=== PATIENT | male | born 1985 | race Two or more races ===

== ENCOUNTER 2021-07-15 21:34 | Inpatient (IN) | payer OTHER ==
[~2021-07-15] VITALS: Ht 175.3 cm; Wt 71.8 kg
[2021-07-15] MEDS ORDERED: KETAMINE HCL 50 MG/ML 10 ML VIAL ONE (21:54)
[2021-07-15] MEDS ORDERED: AMIODARONE HCL 360 MG in DEXTROSE 5%-WATER 242.8 ML IV ONE (22:00)
[2021-07-15] MEDS ORDERED: AMIODARONE HCL 150 MG in DEXTROSE 5%-WATER 97 ML IV ONE (22:00)
[2021-07-15] MEDS ORDERED: KETAMINE HCL 50 MG/ML 10 ML VIAL IVP ONE (22:00)
[2021-07-15 22:13] LABS: BASOPHILS % (AUTO) 0.8 % (0.0-2.0); EOSINOPHILS % (AUTO) 2.5 % (1.0-6.0); HEMATOCRIT 44.3 % (41-53); HEMOGLOBIN 14.8 g/dL (13.5-17.5); LYMPHOCYTES # (AUTO) 3.4 K/uL (1.0-4.8); LYMPHOCYTES % (AUTO) 24.9 % (22.0-44.0); MEAN CORPUSCULAR HGB CONC 33.4 G/dL (31.0-37.0); MEAN CORPUSCULAR VOLUME 90 fL (80-100); MONOCYTES # (AUTO) 0.9 K/uL (0.1-1.0); MONOCYTES % (AUTO) 6.9 % (2.0-9.0); NEUTROPHILS # (AUTO) 8.8 K/uL (1.8-7.7); NEUTROPHILS % (AUTO) 64.9 % (40.0-70.0); PLATELET COUNT (AUTO) 336 K/uL (150-450); RED BLOOD CELL COUNT(AUTO) 4.94 MIL/uL (4.50-5.90); RED CELL DISTRIBUTION WIDTH 13.6 % (11.5-14.5)
[2021-07-15 22:15] LABS: COVID AG,FIA SOURCE NASOPHARYNGEAL
[2021-07-15 22:22] LABS: ANION GAP 7 mmol/L (8-16); CALCIUM, TOTAL 9.3 mg/dL (8.8-10.5); CARBON DIOXIDE 29 mmol/L (22-29); CHLORIDE 108 mmol/L (98-107); CREATININE 1.33 mg/dL (0.60-1.30); GLUCOSE,RANDOM 101 mg/dL (70-110); POTASSIUM 4.1 mmol/L (3.5-5.1); SODIUM SERUM 144 mmol/L (136-145); UREA NITROGEN, BLOOD 23 mg/dL (7-18)
[2021-07-15 22:25] LABS: GLOMERULAR FILTR. RATE CALC > 60 mL/min (>60)
[2021-07-15 22:28] LABS: ALANINE AMINOTRANSFERASE 40 U/L (12-78); ALBUMIN 3.2 g/dL (3.4-5.0); ALKALINE PHOSPHATASE 88 U/L (46-116); ASPARTATE AMINOTRANSFERASE 35 U/L (15-37); BILIRUBIN,TOTAL 0.3 mg/dL (0.1-1.0); TOTAL PROTEIN, SERUM 6.9 g/dL (6.4-8.2)
[2021-07-15] MEDS ORDERED: ACETAMINOPHEN 325 MG TABLET PO PRN (22:30)
[2021-07-15] MEDS ORDERED: LORazepam 2 MG/ML VIAL IVP PRN (22:30)
[2021-07-15] MEDS ORDERED: MAGNESIUM OXIDE 400 MG TABLET PO PRN (22:30)
[2021-07-15] MEDS ORDERED: MORPHINE SULFATE 2 MG/ML SYRINGE IVP PRN (22:30)
[2021-07-15] MEDS ORDERED: SODIUM CHLORIDE 0.9% 1,000 ML IV ONE (22:30)
[2021-07-15] MEDS ORDERED: ONDANSETRON HCL 4 MG/2 ML VIAL IVP PRN (22:30)
[2021-07-15] MEDS ORDERED: MAGNESIUM SULFATE 4 GM/WATER 100 ML IV PRN (22:30)
[2021-07-15] MEDS ORDERED: MAGNESIUM SULFATE 2 GM/WATER 50 ML IV PRN (22:30)
[2021-07-15] MEDS ORDERED: OxyCODONE HCL/ACETAMINOPHEN 5-325 MG TABLET PO PRN (22:30)
[2021-07-16] VITALS: BP 123/62
[2021-07-16 04:00] VITALS: BP 107/54
[2021-07-16] MEDS ORDERED: AMIODARONE HCL 540 MG in DEXTROSE 5%-WATER 239.2 ML IV ONE (04:00)
[2021-07-16 08:00] VITALS: BP 113/76
[2021-07-16] MEDS: FAMOTIDINE 20 MG TABLET PO SCH ×2 (08:43→22:27)
[2021-07-16] MEDS: DOCUSATE SODIUM 100 MG CAPSULE PO SCH ×2 (08:43→22:28)
[2021-07-16 12:15] VITALS: BP 129/79
[2021-07-16 15:29] VITALS: BP 121/71
[2021-07-16 21:37] VITALS: BP 124/76
[2021-07-16] MEDS ORDERED: AMIODARONE HCL 750 MG in DEXTROSE 5%-WATER 485 ML IV SCH (22:00)
[2021-07-16] MEDS: METOPROLOL TARTRATE 25 MG TABLET PO SCH (22:27)
[2021-07-17 01:54] VITALS: BP 120/76
[2021-07-17 07:15] VITALS: BP 127/72
[2021-07-17 08:07] VITALS: BP 134/98
[2021-07-17] MEDS: DOCUSATE SODIUM 100 MG CAPSULE PO SCH (08:18)
[2021-07-17] MEDS: METOPROLOL TARTRATE 25 MG TABLET PO SCH (08:18)
[2021-07-17] MEDS: FAMOTIDINE 20 MG TABLET PO SCH (08:19)
[2021-07-17 09:00] LABS: ANION GAP 7 mmol/L (8-16); CALCIUM, TOTAL 8.9 mg/dL (8.8-10.5); CARBON DIOXIDE 28 mmol/L (22-29); CHLORIDE 104 mmol/L (98-107); CREATININE 0.99 mg/dL (0.60-1.30); GLOMERULAR FILTR. RATE CALC > 60 mL/min (>60); GLUCOSE,RANDOM 95 mg/dL (70-110); POTASSIUM 4.4 mmol/L (3.5-5.1); SODIUM SERUM 139 mmol/L (136-145); UREA NITROGEN, BLOOD 14 mg/dL (7-18)
[2021-07-17 10:56] VITALS: BP 131/92
[2021-07-17] MEDS ORDERED: LOSA-381 PO (14:50)
[2021-07-17] MEDS ORDERED: METO25XL PO (14:50)
[2021-07-17 14:57] VITALS: BP 134/75
[2021-07-18] MEDS ORDERED: METOPROLOL SUCCINATE 25 MG ER TABLET PO SCH (09:00)
[2021-07-18] MEDS ORDERED: LOSARTAN POTASSIUM 25 MG TABLET PO SCH (09:00)
== END 2021-07-17 17:00 | disposition home or self-care (01) | DRG 201 ==
LOC: EMS 21:37 → ICUN 22:23 → 5N 07-16 11:10
PROVIDERS: ADMIT Internal Medicine; ATTEND Internal Medicine
PROC: 5A2204Z Restoration of Cardiac Rhythm, Single (ICD-10-PCS; principal; 2021-07-15)
DX: I47.2 Ventricular tachycardia (principal); I42.8 Other cardiomyopathies; I50.22 Chronic systolic (congestive) heart failure; F10.10 Alcohol abuse, uncomplicated; Z20.822 Contact with and (suspected) exposure to COVID-19; F15.10 Other stimulant abuse, uncomplicated; Z86.16 Personal history of COVID-19; Z91.14 Patient's other noncompliance with medication regimen
CPT/HCPCS: 71045; 80048; 80053; 83735; 83880; 84484; 85025; 87081; 93005; 93306; 99291; G0378; J0282; J3490; J7060; 36415-L1; 36415-TC; U0003

== ENCOUNTER 2021-08-16 08:51 | Inpatient (IN) | payer OTHER ==
[~2021-08-16] VITALS: Ht 177.8 cm; Wt 83.0 kg
[~2021-08-16 08:51] MED LIST: LOSA-381 PO; METO25XL PO
[2021-08-16] MEDS ORDERED: KETAMINE HCL 50 MG/ML 10 ML VIAL ONE (08:55)
[2021-08-16] MEDS ORDERED: KETAMINE HCL 50 MG/ML 10 ML VIAL IVP ONE (09:00)
[2021-08-16] MEDS ORDERED: AMIODARONE HCL 150 MG in DEXTROSE 5%-WATER 97 ML IV ONE (09:15)
[2021-08-16] MEDS ORDERED: AMIODARONE HCL 360 MG in DEXTROSE 5%-WATER 242.8 ML IV ONE (09:15)
[2021-08-16 10:22] LABS: BASOPHILS % (AUTO) 0.3 % (0.0-2.0); EOSINOPHILS % (AUTO) 1.5 % (1.0-6.0); HEMATOCRIT 46.4 % (41-53); HEMOGLOBIN 15.3 g/dL (13.5-17.5); LYMPHOCYTES # (AUTO) 2.6 K/uL (1.0-4.8); LYMPHOCYTES % (AUTO) 12.2 % (22.0-44.0); MEAN CORPUSCULAR HEMOGLOBIN 29.9 pg (26.0-34.0); MEAN CORPUSCULAR HGB CONC 33.1 G/dL (31.0-37.0); MEAN CORPUSCULAR VOLUME 91 fL (80-100); MONOCYTES # (AUTO) 1.5 K/uL (0.1-1.0); MONOCYTES % (AUTO) 6.8 % (2.0-9.0); NEUTROPHILS % (AUTO) 79.2 % (40.0-70.0); PLATELET COUNT (AUTO) 304 K/uL (150-450); RED BLOOD CELL COUNT(AUTO) 5.13 MIL/uL (4.50-5.90); RED CELL DISTRIBUTION WIDTH 14.4 % (11.5-14.5)
[2021-08-16] MEDS: METOPROLOL SUCCINATE 25 MG ER TABLET PO SCH (10:24)
[2021-08-16] MEDS: LOSARTAN POTASSIUM 25 MG TABLET PO SCH (10:24)
[2021-08-16 10:25] LABS: ANION GAP 8 mmol/L (8-16); CALCIUM, TOTAL 8.3 mg/dL (8.8-10.5); CARBON DIOXIDE 26 mmol/L (22-29); CHLORIDE 105 mmol/L (98-107); CREATININE 1.02 mg/dL (0.60-1.30); GLOMERULAR FILTR. RATE CALC > 60 mL/min (>60); GLUCOSE,RANDOM 135 mg/dL (70-110); POTASSIUM 4.1 mmol/L (3.5-5.1); SODIUM SERUM 139 mmol/L (136-145); UREA NITROGEN, BLOOD 19 mg/dL (7-18)
[2021-08-16 10:45] LABS: COVID AG,FIA SOURCE NASOPHARYNGEAL
[2021-08-16] MEDS ORDERED: ACETAMINOPHEN 325 MG TABLET PO PRN ×2 (10:45→11:15)
[2021-08-16] MEDS ORDERED: MAGNESIUM SULFATE 2 GM/WATER 50 ML IV ONE (10:45)
[2021-08-16] MEDS ORDERED: ONDANSETRON HCL 4 MG/2 ML VIAL IVP PRN ×2 (10:45→11:15)
[2021-08-16] MEDS ORDERED: BISACODYL 10 MG RECTAL RECTAL SUPPOSITORY PR PRN (11:15)
[2021-08-16] MEDS ORDERED: 0.9% SODIUM CHLORIDE 10 ML SYRINGE IVP PRN (11:15)
[2021-08-16] MEDS ORDERED: DOCUSATE SODIUM 100 MG CAPSULE PO PRN (11:15)
[2021-08-16] MEDS ORDERED: MAGNESIUM HYDROXIDE SUSPENSION 30 ML UDCUP PO PRN (11:15)
[2021-08-16 11:58] VITALS: BP 104/74
[2021-08-16 15:01] VITALS: BP 121/67
[2021-08-16] MEDS ORDERED: AMIODARONE HCL 540 MG in DEXTROSE 5%-WATER 239.2 ML IV ONE (15:15)
[2021-08-16] MEDS: CefTRIAXone 1 GM/DEXTROSE 50 ML IV SCH (17:01)
[2021-08-16] MEDS ORDERED: FUROSEMIDE 20 MG/2 ML VIAL IVP ONE (17:15)
[2021-08-16] MEDS: HEPARIN SODIUM,PORCINE 5,000 UNITS/ML VIAL SQ SCH ×2 (17:15→23:06)
[2021-08-16] MEDS: DOXYCYCLINE HYCLATE 100 MG in DEXTROSE 5%-WATER 100 ML IV SCH (17:30)
[2021-08-16 19:40] VITALS: BP 135/82
[2021-08-16 20:19] LABS: APPEARANCE,URINE CLEAR (CLEAR); BILIRUBIN,URINE NEGATIVE (NEGATIVE); GLUCOSE, URINE (UA) NEGATIVE (NEGATIVE); KETONES,URINE NEGATIVE (NEGATIVE); LEUKOCYTE ESTERASE ,URINE NEGATIVE (NEGATIVE); NITRATE,URINE NEGATIVE (NEGATIVE); OCCULT BLOOD,URINE NEGATIVE (NEGATIVE); PH,URINE 5.5 (5.0-8.0); PROTEIN,URINE NEGATIVE (NEGATIVE); SPECIFIC GRAVITIY, URINE 1.019 (1.003-1.030); UROBILINOGEN,URINE <=1.0 mg/dL (<=1.0)
[2021-08-16 20:25] LABS: AMPHET/METH SCREEN,URINE POSITIVE (NEGATIVE); BARBITURATE SCREEN, URINE NEGATIVE (NEGATIVE); BENZODIAZEPINES SCREEN,URINE NEGATIVE (NEGATIVE); CANNABINOID SCREEN,URINE POSITIVE (NEGATIVE); COCAINE SCREEN,URINE NEGATIVE (NEGATIVE); METHADONE SCREEN, URINE NEGATIVE (NEGATIVE); OPIATE SCREEN,URINE NEGATIVE (NEGATIVE)
[2021-08-16 20:27] LABS: BACTERIA,URINE None Seen /HPF (None Seen); RBC,URINE None Seen /HPF (0-2); WBC,URINE None Seen /HPF (0-5)
[2021-08-16 20:28] LABS: PHENCYCLIDINE SCREEN,URINE NEGATIVE (NEGATIVE)
[2021-08-16] MEDS: MELATONIN 3 MG TABLET PO PRN (20:37)
[2021-08-16 23:30] VITALS: BP 125/71
[2021-08-17] MEDS ORDERED: SODIUM CHLORIDE 0.9% 250 ML IV ONE (02:25)
[2021-08-17] MEDS: DOXYCYCLINE HYCLATE 100 MG in DEXTROSE 5%-WATER 100 ML IV SCH ×2 (02:36→16:05)
[2021-08-17 04:16] VITALS: BP 128/73
[2021-08-17 06:33] LABS: BASOPHILS % (AUTO) 0.4 % (0.0-2.0); EOSINOPHILS % (AUTO) 3.2 % (1.0-6.0); HEMATOCRIT 41.3 % (41-53); LYMPHOCYTES % (AUTO) 17.4 % (22.0-44.0); MEAN CORPUSCULAR HEMOGLOBIN 30.2 pg (26.0-34.0); MEAN CORPUSCULAR HGB CONC 33.9 G/dL (31.0-37.0); MEAN CORPUSCULAR VOLUME 89 fL (80-100); MONOCYTES # (AUTO) 0.5 K/uL (0.1-1.0); MONOCYTES % (AUTO) 4.8 % (2.0-9.0); NEUTROPHILS # (AUTO) 8.4 K/uL (1.8-7.7); NEUTROPHILS % (AUTO) 74.2 % (40.0-70.0); PLATELET COUNT (AUTO) 295 K/uL (150-450); RED BLOOD CELL COUNT(AUTO) 4.63 MIL/uL (4.50-5.90); RED CELL DISTRIBUTION WIDTH 14.3 % (11.5-14.5)
[2021-08-17 07:07] LABS: ALANINE AMINOTRANSFERASE 51 U/L (12-78); ALBUMIN 2.9 g/dL (3.4-5.0); ALKALINE PHOSPHATASE 59 U/L (46-116); ANION GAP 10 mmol/L (8-16); ASPARTATE AMINOTRANSFERASE 30 U/L (15-37); BILIRUBIN,TOTAL 1.2 mg/dL (0.1-1.0); CALCIUM, TOTAL 8.2 mg/dL (8.8-10.5); CARBON DIOXIDE 25 mmol/L (22-29); CHLORIDE 104 mmol/L (98-107); CREATININE 0.93 mg/dL (0.60-1.30); GLOMERULAR FILTR. RATE CALC > 60 mL/min (>60); GLUCOSE,RANDOM 123 mg/dL (70-110); POTASSIUM 3.4 mmol/L (3.5-5.1); SODIUM SERUM 139 mmol/L (136-145); THYROID STIMULATING HORMONE 3.07 uIU/mL (0.36-3.74); TOTAL PROTEIN, SERUM 6.2 g/dL (6.4-8.2); UREA NITROGEN, BLOOD 11 mg/dL (7-18)
[2021-08-17 07:59] VITALS: BP 126/79
[2021-08-17] MEDS: ASPIRIN 81 MG CHEWABLE TABLET PO SCH (09:13)
[2021-08-17] MEDS: HEPARIN SODIUM,PORCINE 5,000 UNITS/ML VIAL SQ SCH ×2 (09:13→16:04)
[2021-08-17] MEDS: PANTOPRAZOLE SODIUM 40 MG DR TABLET PO SCH (09:13)
[2021-08-17] MEDS: LOSARTAN POTASSIUM 25 MG TABLET PO SCH (09:13)
[2021-08-17] MEDS: METOPROLOL SUCCINATE 25 MG ER TABLET PO SCH (09:13)
[2021-08-17] MEDS ORDERED: AMIODARONE HCL 750 MG in DEXTROSE 5%-WATER 485 ML IV SCH (09:15)
[2021-08-17 11:46] VITALS: BP 112/70
[2021-08-17] MEDS: CefTRIAXone 1 GM/DEXTROSE 50 ML IV SCH (16:04)
[2021-08-17] MEDS ORDERED: SODIUM CHLORIDE 0.9% 100 ML ONE (16:09)
[2021-08-17 16:23] VITALS: BP 121/69
[2021-08-17 20:00] VITALS: BP 109/77
[2021-08-18] VITALS (8 sets, daily range): BP systolic 101–132; BP diastolic 66–80
[2021-08-18] MEDS ORDERED: MAGNESIUM OXIDE 400 MG TABLET PO ONE ×2 (01:00→05:00)
[2021-08-18] MEDS ORDERED: POTASSIUM CHLORIDE 20 MEQ ER TABLET PO ONE (01:00)
[2021-08-18] MEDS: HEPARIN SODIUM,PORCINE 5,000 UNITS/ML VIAL SQ SCH ×4 (01:02→23:51)
[2021-08-18] MEDS: MELATONIN 3 MG TABLET PO PRN ×2 (01:21→20:38)
[2021-08-18] MEDS: DOXYCYCLINE HYCLATE 100 MG in DEXTROSE 5%-WATER 100 ML IV SCH ×2 (04:01→15:16)
[2021-08-18 06:26] LABS: BASOPHILS % (AUTO) 0.6 % (0.0-2.0); EOSINOPHILS % (AUTO) 6.8 % (1.0-6.0); HEMOGLOBIN 15.5 g/dL (13.5-17.5); LYMPHOCYTES % (AUTO) 21.5 % (22.0-44.0); MEAN CORPUSCULAR HEMOGLOBIN 30.6 pg (26.0-34.0); MEAN CORPUSCULAR HGB CONC 34.6 G/dL (31.0-37.0); MEAN CORPUSCULAR VOLUME 89 fL (80-100); MONOCYTES # (AUTO) 0.9 K/uL (0.1-1.0); MONOCYTES % (AUTO) 9.7 % (2.0-9.0); NEUTROPHILS # (AUTO) 5.7 K/uL (1.8-7.7); NEUTROPHILS % (AUTO) 61.4 % (40.0-70.0); PLATELET COUNT (AUTO) 293 K/uL (150-450); RED BLOOD CELL COUNT(AUTO) 5.07 MIL/uL (4.50-5.90); RED CELL DISTRIBUTION WIDTH 14.1 % (11.5-14.5)
[2021-08-18 07:02] LABS: ALANINE AMINOTRANSFERASE 53 U/L (12-78); ALKALINE PHOSPHATASE 62 U/L (46-116); ANION GAP 8 mmol/L (8-16); ASPARTATE AMINOTRANSFERASE 27 U/L (15-37); BILIRUBIN,TOTAL 0.9 mg/dL (0.1-1.0); CALCIUM, TOTAL 8.8 mg/dL (8.8-10.5); CARBON DIOXIDE 26 mmol/L (22-29); CHLORIDE 103 mmol/L (98-107); CREATININE 0.84 mg/dL (0.60-1.30); GLOMERULAR FILTR. RATE CALC > 60 mL/min (>60); GLUCOSE,RANDOM 103 mg/dL (70-110); SODIUM SERUM 137 mmol/L (136-145); TOTAL PROTEIN, SERUM 6.8 g/dL (6.4-8.2); UREA NITROGEN, BLOOD 13 mg/dL (7-18)
[2021-08-18] MEDS: LOSARTAN POTASSIUM 25 MG TABLET PO SCH ×2 (09:00→09:30)
[2021-08-18] MEDS: PANTOPRAZOLE SODIUM 40 MG DR TABLET PO SCH (09:30)
[2021-08-18] MEDS: METOPROLOL SUCCINATE 25 MG ER TABLET PO SCH (09:30)
[2021-08-18] MEDS: ASPIRIN 81 MG CHEWABLE TABLET PO SCH (09:30)
[2021-08-18] MEDS: CefTRIAXone 1 GM/DEXTROSE 50 ML IV SCH (16:50)
[2021-08-18] MEDS: AMIODARONE HCL 200 MG TABLET PO SCH (20:32)
[2021-08-19] VITALS: BP 117/66
[2021-08-19] MEDS: DOXYCYCLINE HYCLATE 100 MG in DEXTROSE 5%-WATER 100 ML IV SCH (03:56)
[2021-08-19 05:44] VITALS: BP 128/74
[2021-08-19 07:05] LABS: ALANINE AMINOTRANSFERASE 47 U/L (12-78); ALBUMIN 2.8 g/dL (3.4-5.0); ALKALINE PHOSPHATASE 74 U/L (46-116); ANION GAP 11 mmol/L (8-16); ASPARTATE AMINOTRANSFERASE 23 U/L (15-37); BASOPHILS % (AUTO) 0.5 % (0.0-2.0); BILIRUBIN,TOTAL 0.5 mg/dL (0.1-1.0); CALCIUM, TOTAL 8.4 mg/dL (8.8-10.5); CARBON DIOXIDE 25 mmol/L (22-29); CHLORIDE 103 mmol/L (98-107); CREATININE 0.98 mg/dL (0.60-1.30); EOSINOPHILS % (AUTO) 7.6 % (1.0-6.0); GLOMERULAR FILTR. RATE CALC > 60 mL/min (>60); GLUCOSE,RANDOM 116 mg/dL (70-110); HEMOGLOBIN 15.1 g/dL (13.5-17.5); LYMPHOCYTES # (AUTO) 2.4 K/uL (1.0-4.8); LYMPHOCYTES % (AUTO) 28.8 % (22.0-44.0); MEAN CORPUSCULAR HGB CONC 33.5 G/dL (31.0-37.0); MEAN CORPUSCULAR VOLUME 90 fL (80-100); MONOCYTES % (AUTO) 11.9 % (2.0-9.0); NEUTROPHILS # (AUTO) 4.2 K/uL (1.8-7.7); NEUTROPHILS % (AUTO) 51.2 % (40.0-70.0); PLATELET COUNT (AUTO) 292 K/uL (150-450); POTASSIUM 3.6 mmol/L (3.5-5.1); RED BLOOD CELL COUNT(AUTO) 5.02 MIL/uL (4.50-5.90); RED CELL DISTRIBUTION WIDTH 14.4 % (11.5-14.5); SODIUM SERUM 139 mmol/L (136-145); TOTAL PROTEIN, SERUM 6.5 g/dL (6.4-8.2); UREA NITROGEN, BLOOD 14 mg/dL (7-18)
[2021-08-19] MEDS: PANTOPRAZOLE SODIUM 40 MG DR TABLET PO SCH (08:35)
[2021-08-19] MEDS: METOPROLOL SUCCINATE 25 MG ER TABLET PO SCH (08:35)
[2021-08-19] MEDS: AMIODARONE HCL 200 MG TABLET PO SCH (08:35)
[2021-08-19] MEDS: ASPIRIN 81 MG CHEWABLE TABLET PO SCH (08:35)
[2021-08-19] MEDS: LOSARTAN POTASSIUM 25 MG TABLET PO SCH (08:35)
[2021-08-19] MEDS: HEPARIN SODIUM,PORCINE 5,000 UNITS/ML VIAL SQ SCH (08:36)
[2021-08-19 09:41] VITALS: BP 139/77
[2021-08-19] MEDS ORDERED: LORazepam 2 MG/ML VIAL IVP PRN (10:30)
[2021-08-19] MEDS ORDERED: LURA40TA2 PO (11:43)
[2021-08-19] MEDS ORDERED: ASPI-1450 PO (12:10)
[2021-08-19] MEDS ORDERED: AMIO200T68 PO (12:10)
[2021-08-19] MEDS ORDERED: LOSA-381 PO (12:10)
[2021-08-19] MEDS ORDERED: METO25XL PO (12:11)
== END 2021-08-19 12:30 | disposition home or self-care (01) | DRG 201 ==
LOC: EMS 08:51 → 5N 11:20
PROVIDERS: ADMIT Internal Medicine; ATTEND Internal Medicine
PROC: 5A2204Z Restoration of Cardiac Rhythm, Single (ICD-10-PCS; principal; 2021-08-16)
DX: I47.2 Ventricular tachycardia (principal); I50.23 Acute on chronic systolic (congestive) heart failure; I42.8 Other cardiomyopathies; R65.10 Systemic inflammatory response syndrome (SIRS) of non-infectious origin without acute organ dysfunction; E44.0 Moderate protein-calorie malnutrition; F15.10 Other stimulant abuse, uncomplicated; Z20.822 Contact with and (suspected) exposure to COVID-19; E83.42 Hypomagnesemia; Z68.26 Body mass index [BMI] 26.0-26.9, adult
CPT/HCPCS: 71045; 80048; 80053; 81001; 83735; 84145; 84443; 84484; 85025; 93005; 99291; J0282; J0696; J1644; J1940; J2060; J3475; J3490; J7050; J7060; 36415-L1; 36415-TC